=== PATIENT | female | born 1955 | race Caucasian/White ===

== ENCOUNTER → 2017-05-28 | Outpatient (CLI) | payer MEDICARE ==
--- NOTE | ~2017-05-28 | US84 ---
[id number] [facility]. [facility] [address] [place], [place] [address] [id number] O MR#: [id number] Acc #: [id number] NAME: BOBBY THOMPSON : 1955 SEX: F STUDY DATE/TIME: 05/28/2017 14:52 UNIT: [facility] ROOM: STUDY DESCRIPTION: US LE Veins Complete Nelson Stdy Attending Physician: Nestor Velasco M.D. Referring Physician: Nestor Velasco M.D. Ordering Physician: Nestor Velasco M.D. Primary Care Physician: [facility] MEDICAL IMAGING REPORT This report is preliminary unless electronic signature is present EXAM Bilateral lower extremity venous duplex, 05/28/2017 HISTORY Bilateral lower extremity edema for 5 days on the right side and 3 days on the left side with history of breast carcinoma. Evaluate for deep vein thrombosis. TECHNIQUE Venous ultrasound examination of both lower extremities was performed using grayscale, spectral Doppler and color flow Doppler imaging. FINDINGS The examination is negative. There is no evidence of deep venous thrombus from the groin to the lower calf bilaterally. Visualized greater saphenous veins are also patent. IMPRESSION Negative examination. No evidence of lower extremity deep venous thrombosis. Dictated by... Avery Espino M.D. THIS IS AN ELECTRONICALLY VERIFIED REPORT Avery Espino M.D. at 05/29/2017 2:17 PM RICHARD/rik TD: 05/28/2017 23:04 JOB #: [id number] MEDICAL IMAGING REPORT Page 1 of 1 COPY
== END | disposition home or self-care (01) ==
LOC: CNIV 13:38
DX: I82.401 Acute embolism and thrombosis of unspecified deep veins of right lower extremity (principal); M79.89 Other specified soft tissue disorders
CPT/HCPCS: 93970